=== PATIENT | female | born 1990 | race Caucasian/White ===

== ENCOUNTER → 2018-06-09 | Outpatient (CLI) | payer OTHER ==
--- NOTE | 2018-06-07 10:18 | US ---
EXAM DESCRIPTION: OB Level 2 /Maternal: Ultrasound. CLINICAL HISTORY: Gestational size and dates correlation. Second trimester. anatomic survey. unknown. . By medical history , EGA today is 20 weeks, 4 days, with MARIA DE JESUS of 10/20/2018. COMPARISON: Previous OB ultrasound not available. . TECHNIQUE: Trans-pelvic scanning through the urine-filled bladder; wylie-scale, color Doppler, and M-mode sonography FINDINGS: Single, intrauterine gestation, cephalic position. Amniotic fluid volume subjectively normal. KATARINA : Not measured.. Maternal cervix internal os unremarkable.. Placenta posterior with no evidence of previa or abruptio. heart rate by M-mode sonography 159 beats/min. limb activity observed. structural survey: Situs solitus. The following structures were visualized and grossly normal - urinary bladder, stomach, and bilateral kidneys; cord insertion, 3-vessel cord and 4 extremities; spine, 4-chamber heart; diaphragm, bilateral choroid plexus, lateral ventricles, cerebellum, and cisterna magna. Nose/lips seen profile and en face. Ultrasound parameter measurements for estimating gestational age: BPD 45.4 mm 19/5 (weeks/days). Head circumference 174.4 mm 20/0. Abdominal circumference 150.4 mm 20/2. Femur length 32.7 mm 20/1. Ultrasound parameter ratios and cephalic index are within the normal range. Mean estimated gestational age is 20 weeks 0 days, corresponding to MARIA DE JESUS of 10/24/2018. Estimated weight based on these measurements is 339+/- 51 g. 12 ounces. 26th percentile by medical history. Bilateral adnexa not well seen; ovaries not seen. IMPRESSION: 1. Single, living, intrauterine gestation in cephalic presentation. Amniotic fluid volume subjectively normal, and maternal cervix internal os unremarkable. Placenta posterior with no evidence of previa. Structural survey grossly normal . 2. Estimated gestational age by today's ultrasound examination is 20 weeks 0 days with MARIA DE JESUS 10/24/2018. This is 4 days younger than the estimated gestation age by medical history. 3. Estimated weight is 339 g. 12 ounces. 26th Percentile by medical history. Electronically signed by: Griffin Moody MD 06/07/2018 10:17 AM CDT
== END ==
LOC: US 14:30
DX: Z34.91 Encounter for supervision of normal pregnancy, unspecified, first trimester (principal)

== ENCOUNTER 2019-05-14 16:10 | Emergency (ER) | payer OTHER ==
[2019-05-14 16:35] VITALS: O2SAT 98
--- NOTE | 2019-05-14 16:49 | ED.PDOC ---
History of Present Illness - General Chief Complaint: General Stated Complaint: Pt may have swallowed aluminum shavings Time Seen by Provider: 05/14/19 16:11 Source: patient Exam Limitations: no limitations - History of Present Illness Initial Comments: the patient is a 29-year-old female presenting to the emergency room secondary to some mild throat pain after having drank her beverage and found some very small shavings of aluminum in it. She is having no difficulty breathing. She is able to swallow currently without difficulty. Examination of the posterior oropharynx with a dental mirror and then with a nasal laryngoscope shows no evidence of any residual shavings. The patient does have a very small petechial spot to the posterior oropharynx on the left. No active bleeding. Timing/Duration: 1 hour Severity: mild Improving Factors: nothing Worsening Factors: nothing Associated Symptoms: denies symptoms Allergies/Adverse Reactions: Allergies NO KNOWN ALLERGY Allergy (Verified 05/14/19 16:35) Home Medications: Ambulatory Orders NK 05/14/19 Review of Systems - Review of Systems Constitutional: States: no symptoms reported EENTM: States: see HPI Respiratory: States: no symptoms reported Cardiology: States: no symptoms reported Gastrointestinal/Abdominal: States: no symptoms reported Genitourinary: States: no symptoms reported Musculoskeletal: States: no symptoms reported Skin: States: no symptoms reported Neurological: States: no symptoms reported Endocrine: States: no symptoms reported All other Systems: No Change from Baseline Past Medical History (General) - Patient Medical History Hx Stroke: No Hx of COPD: No Hx Cardiac Disorders: No Hx Congestive Heart Failure: No Hx Hypertension: No Hx Diabetes: No Hx Renal Disease: No Hx Cancer: No Hx MRSA: No Surgical History: no surgical history - Vaccination History Hx Tetanus, Diphtheria Vaccination: No Hx Influenza Vaccination: No Hx Pneumococcal Vaccination: No - Social History Hx Tobacco Use: Yes Hx Alcohol Use: Yes Hx Substance Use: No Hx Substance Use Treatment: No Hx Depression: No - Female History Patient is a Female of Child Bearing Age (10 -59 yrs old): Yes Hx Last Menstrual Period: 06/29/13 Patient : No - Denies Expected Date of Delivery:: 09/07/15 Family Medical History - Family History Mother Name: Yamel Mejía Age (years): 50 Living Status: Still Living Hx Family Asthma: Yes Age of Onset (years of age): mom Hx Family Congestive Heart Failure: No Hx Family Hypertension: No Hx Family Stroke: No Hx Family Diabetes: No Hx Family Cancer: No Hx Family;Other: heart attack-m. grandfather Father Family History: No Known Name: Stew Mejía Age (years): 54 Living Status: Still Living Brother Name: Stew Mejía Age (years): 23 Living Status: Still Living Hx Family Asthma: Yes Hx Family Congestive Heart Failure: No Hx Family Hypertension: No Hx Family Stroke: No Hx Family Diabetes: No Hx Family Cancer: No Sister Family History: No Known Name: Meaghan Mejía Age (years): 28 Living Status: Still Living Hx Family Asthma: No Hx Family Congestive Heart Failure: No Hx Family Hypertension: No Hx Family Stroke: No Hx Family Diabetes: No Hx Family Cancer: No Physical Exam - Physical Exam General Appearance: Alert, Comfortable, No apparent distress Eye Exam: bilateral normal Ears, Nose, Throat: hearing grossly normal, normal ENT inspection Neck: full range of motion, supple Respiratory: lungs clear, normal breath sounds, no respiratory distress, no accessory muscle use Cardiovascular/Chest: normal peripheral pulses, regular rate, rhythm, no edema Peripheral Pulses: radial,right: 2+, radial,left: 2+ Gastrointestinal/Abdominal: non tender, soft Rectal Exam: deferred Extremity: normal range of motion, no pedal edema, normal capillary refill 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 Soft tissue x-ray of the neck as well as direct visualization with both a dental mirror and with the nasal laryngoscope by me show no evidence of residual shavings in the oropharynx. The patient will likely have some very mild soreness for the next couple of days. I do not expect her to have any further difficulties. a little bit of Motrin can be used for discomfort and if she wants to she can use a small amount of Chloraseptic [place] tonight in the next day if needed. ER warnings are given for any significant worsening. I do not expect shavings, due to their small size, will most likely passed without difficulty. 05/14/19 18:02 - Results/Orders Results/Orders: soft tissue x-ray of the neck shows no evidence of any foreign body Departure - Departure Clinical Impression: Foreign body ingestion Qualifiers: Encounter type: initial encounter Qualified Code(s): T18.9XXA - Foreign body of alimentary tract, part unspecified, initial encounter Disposition: Discharge to Home or Self Care Condition: Fair Departure Forms: ED Discharge - Pt. Copy, Patient Portal Self Enrollment Diet: regular diet Activity: increase activity as tolerated Referrals: Loni Montanez DO [Primary Care Provider] - 1-2 Weeks Home Medications: Ambulatory Orders NK 05/14/19 Additional Instructions: the patient a 29-year-old female presenting to emergency room secondary to some mild posterior oropharyngeal discomfort after possibly swallowing some small aluminum shavings that were in her beverage. Soft tissue x-ray of the neck as well as direct visualization with both a dental mirror and with the nasal laryngoscope by me show no evidence of residual shavings in the oropharynx. The patient will likely have some very mild soreness for the next c ouple of days. I do not expect her to have any further difficulties. a little bit of Motrin can be used for discomfort and if she wants to she can use a small amount of Chloraseptic [place] tonight in the next day if needed. I do expect that shavings, due to their small size, will pass without difficulty. ER warnings are given for any significant worsening.
--- NOTE | 2019-05-14 17:51 | RAD ---
EXAM: XR Soft Tissue Neck CLINICAL HISTORY: Accidental metallic congestion. TECHNIQUE: Frontal and lateral views of the soft tissues of the neck. COMPARISON: No relevant prior studies available. FINDINGS: Limitations: None. Airway: Unremarkable. No abnormal narrowing. Bones/joints: Unremarkable. Soft tissues: Unremarkable. No abnormal soft tissue prominence. Normal epiglottis. No radiopaque foreign body. IMPRESSION: No abnormality noted. Electronically signed by: Haley Mazariegos MD 05/14/2019 5:50 PM CDT
[2019-05-14 18:11] VITALS: BP 103/63; TEMP 97.1
== END 2019-05-14 18:10 | disposition home or self-care (01) ==
LOC: ER 16:10
DX: T18.9XXA Foreign body of alimentary tract, part unspecified, initial encounter (principal); R07.0 Pain in throat; Z87.891 Personal history of nicotine dependence